=== PATIENT | female | born 1955 | race Caucasian/White ===

== ENCOUNTER 2017-10-03 16:31 | Emergency (ER) | payer MEDICARE, SELFPAY ==
[2017-10-03 16:32] VITALS: BP 149/71; PULSE 90; RESP 20; TEMP 36.8; O2SAT 98; BMI 27.5
--- NOTE | 2017-10-03 16:57 | NURSING ---
NO OLD EKGS
[2017-10-03 17:16] LABS: Bedside Glucose 148 mg/dL (70-110)
--- NOTE | 2017-10-03 17:21 | CT_ITS ---
CT Head or Brain W/O Contrast INDICATION: RT FACIAL DROOP, SLURRED SPEECH COMPARISON: None TECHNIQUE: Noncontrast axial CT examination of the brain. Radiation dose optimization applied. FINDINGS: The ventricular system is normal in size and symmetric. The cortical sulci, sylvian fissures, and basal cisterns are well seen. The mejia-white matter junction is distinct. There is no evidence of acute intracranial hemorrhage, mass effect, midline shift, or abnormal extra-axial collection. The calvarium is intact and the visualized paranasal sinuses and mastoid air cells are clear. CT/Brain/Head without Contrast IMPRESSION: No evidence of acute intracranial abnormality by noncontrast CT. at 2111 Reported and signed by: Darlene Cooper MD Electronically Signed: Darlene Cooper MD at 20:09 EST Tel , Service support ,
--- NOTE | 2017-10-03 17:21 | EKG12_ITS ---
Test Reason : NEURO Blood Pressure : / mmHG Vent. Rate : 077 BPM Atrial Rate : 077 BPM P-R Int : 142 ms QRS Dur : 086 ms QT Int : 382 ms P-R-T Axes : 056 039 078 degrees QTc Int : 432 ms Normal sinus rhythm Normal ECG Confirmed by DENNYS PAGAN, HARIS ([id number]), order editor DARIEN GANN ([id number]) on 10/06/2017 1:09:52 PM Referred By: ALCIRA Confirmed By:HARIS NOYOLA MD
[2017-10-03 17:57] LABS: Absolute Neutrophil Count 4.8 X10^3/uL (2.0-7.7); Basophil# 0.06 X10^3/uL; Basophil% 0.6 % (0-1); Eosinophil# 0.63 X10^3/uL; Eosinophils% 6.7 % (0-5); Hematocrit 32.5 % (37-47); Hemoglobin 10.1 g/dl (12.0-15.0); Lymphocyte % 34.9 % (19-41); Mean Corp Hgb Conc 31.1 g/gl (32-36); Mean Corpuscular Hgb 24.7 pg (27.0-32.0); Mean Corpuscular Volume 79.5 fL (81-99); Mean Platelet Vol. 9.6 fl (6.2-12.0); Monocyte# 0.69 X10^3/uL; Monocyte% 7.3 % (0-10); Neutrophil # 4.77 X10^3/uL (2.7-7.7); Neutrophil % 50.4 % (47-70); Platelet Count 342 K/mm3 (150-450); RBC Distribution Width CV 15.2 % (11.6-14.6); RBC Distribution Width SD 43.8 fl (35.1-43.9); Red Blood Count 4.09 M/mm3 (4.2-5.4); White Blood Count 9.5 K/mm3 (4.4-11.0)
[2017-10-03 17:58] LABS: POSITIVE COUNT NO; POSITIVE DIFFERENTIAL NO; POSITIVE MORPHOLOGY NO
[2017-10-03 18:03] LABS: International Normalized Ratio 1.3
[2017-10-03 18:04] LABS: Partial Thromboplast Time 39.2 Seconds (24.1-36.2)
[2017-10-03 18:05] LABS: Anion Gap 9 (5-15); BUN 8 mg/dL (7-18); BUN/Creat Ratio 11.4 RATIO (10-20); Calcium,Total 8.8 mg/dL (8.5-10.1); Chloride 109 mmol/L (98-107); EST Glomerular Filtration Rate 90 mL/min (>60); Est Glom Filt Rate - Afr Amer 109 mL/min (>60); Glucose 104 mg/dL (74-106); Potassium 3.7 mmol/L (3.5-5.1); Sodium Level 143 mmol/L (136-145)
--- NOTE | 2017-10-03 19:18 | ED.VISSUMM ---
- ER Visit Summary Date of Service: 10/03/17 Chief Complaint: Facial swelling History of Present Illness: The patient is a [address] Godwin turner. She reports for the past 3 days she is having intermittent episodes where it feels like the right side of her face is swelling on the inside of her mouth. This comes and goes. It lasts hours. It is not painful. She denies any relationship to food. Reports that she gets a headache when her face swells. This is 8 out of 10 at worst and she is pain-free currently. She reports that lasts seconds. Patient denies any dental pain. In fact she had her teeth pulled 4-5 years ago. She denies any swelling beneath her tongue. Patient reports that this is similar to a TIA that she had last March that she was admitted to another hospital for. States that she had an MRI and had an echocardiogram that showed that she had a PFO. She was placed on Xarelto and is still on this. Physical Examination: Vitals: Stable. Afebrile. Mouth: Edentulous. No swelling over the parotid gland or duct. Normal Stensen's duct. No swelling beneath the tongue. No focal abscess or tenderness to palpation. Neurological: Cranial nerves II through XII are intact. 5 out of 5 strength throughout. Normal sensation to light touch throughout. Normal ytzuse-yxyf-hlggfh and npzo-ioib-myfb bilaterally. Normal gait. NIH is 0. General: A&O x 3. NAD. Cardiovascular exam: Regular rate and rhythm, no murmur, rub or gallop. Respiratory exam: Clear to auscultation bilaterally. No wheezes or stridor. Abdominal exam: Soft, nontender, nondistended, normal bowel sounds. No peritoneal signs. Extremity: No clubbing, cyanosis, or edema. Test Results: Patient had a CBC that was remarkable for an H&H of 10.1 and 32.5, eosinophils of 7. Chem-7 is remarkable for a chloride of 109. INR is 1.3. PTT is 39.2. EKG is sinus at 77 with no acute changes. CT head shows no acute disease. Emergency Department Course and Treatment: The MRI was obtained from the outside facility. This was obtained on April 08, 2017. It showed no ischemic changes. She had a HARRIET on September 25 of this year that shows a small PFO. She reports that she has an appointment to have this repaired. Treatment Plan: I discussed the patient with Dr. Ohara she states that this is similar the TIAs she has had. In my opinion it does not sound neurologic. Her NIH scale is 0. She is already on maximal care even if this was a TIA. No further treatment or workup is indicated at this time. There is no indication for admission. Will be discharged with instructions to follow-up with her cardiothoracic surgeon for repair of her PFO as scheduled. Follow-up her primary care physician in 1-2 days if not improving. Return to the emergency department for any worsening symptoms. Disposition: To home in improved and stable condition. Impression:. Intermittent right facial swelling. 2. Coagulopathy on Xarelto. 3. Patent foramen ovale. This note was generated with [employer] dictation software. It may contain incorrect words, spelling, and punctuation that were not noted in review of the chart prior to signing ED Disposition - Plan for ED Patient: Disposition: Home or Assisted Living Chief Complaint: Neuro S/Sx Instructions: ED Transient Ischemic Attack Referrals: Jose Ohara MD [STAFF PHYSICIAN] - 1-2 Weeks
[2017-10-03 19:22] VITALS: BP 124/61; PULSE 80; RESP 17; O2SAT 96
--- NOTE | 2017-10-03 19:22 | ED.DCSUM_ITS ---
- ER Visit Summary Date of Service: 10/03/17 Chief Complaint: Facial swelling History of Present Illness: The patient is a [address] Godwin turner. She reports for the past 3 days she is having intermittent episodes where it feels like the right side of her face is swelling on the inside of her mouth. This comes and goes. It lasts hours. It is not painful. She denies any relationship to food. Reports that she gets a headache when her face swells. This is 8 out of 10 at worst and she is pain-free currently. She reports that lasts seconds. Patient denies any dental pain. In fact she had her teeth pulled 4-5 years ago. She denies any swelling beneath her tongue. Patient reports that this is similar to a TIA that she had last March that she was admitted to another hospital for. States that she had an MRI and had an echocardiogram that showed that she had a PFO. She was placed on Xarelto and is still on this. Physical Examination: Vitals: Stable. Afebrile. Mouth: Edentulous. No swelling over the parotid gland or duct. Normal Stensen' s duct. No swelling beneath the tongue. No focal abscess or tenderness to palpation. Neurological: Cranial nerves II through XII are intact. 5 out of 5 strength throughout. Normal sensation to light touch throughout. Normal finger-nose- finger and cmum-ofeb-lohl bilaterally. Normal gait. NIH is 0. General: A&O x 3. NAD. Cardiovascular exam: Regular rate and rhythm, no murmur, rub or gallop. Respiratory exam: Clear to auscultation bilaterally. No wheezes or stridor. Abdominal exam: Soft, nontender, nondistended, normal bowel sounds. No peritoneal signs. Extremity: No clubbing, cyanosis, or edema. Test Results: Patient had a CBC that was remarkable for an H&H of 10.1 and 32.5 , eosinophils of 7. Chem-7 is remarkable for a chloride of 109. INR is 1.3. PTT is 39.2. EKG is sinus at 77 with no acute changes. CT head shows no acute disease. Emergency Department Course and Treatment: The MRI was obtained from the outside facility. This was obtained on April 08, 2017. It showed no ischemic changes. She had a HARRIET on September 25 of this year that shows a small PFO. She reports that she has an appointment to have this repaired. Treatment Plan: I discussed the patient with Dr. Ohara she states that this is similar the TIAs she has had. In my opinion it does not sound neurologic. Her NIH scale is 0. She is already on maximal care even if this was a TIA. No further treatment or workup is indicated at this time. There is no indication for admission. Will be discharged with instructions to follow-up with her cardiothoracic surgeon for repair of her PFO as scheduled. Follow-up her primary care physician in 1-2 days if not improving. Return to the emergency department for any worsening symptoms. Disposition: To home in improved and stable condition. Impression:. Intermittent right facial swelling. 2. Coagulopathy on Xarelto. 3. Patent foramen ovale. This note was generated with [employer] dictation software. It may contain incorrect words, spelling, and punctuation that were not noted in review of the chart prior to signing ED Disposition - Plan for ED Patient: Disposition: Home or Assisted Living Chief Complaint: Neuro S/Sx Instructions: ED Transient Ischemic Attack Referrals: Jose Ohara MD [STAFF PHYSICIAN] - 1-2 Weeks
--- NOTE | 2017-10-03 19:24 | NURSING ---
PT WAS NOT A GOOD HISTORIAN AND DID NOT KNOW WHAT MEDICATIONS SHE IS TAKING. UNABLE TO OBTAIN A MEDICATION LIST.
[2017-10-03 19:25] VITALS: BP 122/63; PULSE 81; RESP 16; O2SAT 99
== END 2017-10-03 19:32 | disposition home or self-care (01) ==
LOC: ED 17:31
PROVIDERS: Emergency Provider Emergency Medicine; Family Provider Internal Medicine; PCP Internal Medicine
DX: R22.0 Localized swelling, mass and lump, head (principal); D68.9 Coagulation defect, unspecified; Z79.01 Long term (current) use of anticoagulants; Q21.1 Atrial septal defect; R51 Headache; K08.109 Complete loss of teeth, unspecified cause, unspecified class; J44.9 Chronic obstructive pulmonary disease, unspecified; Z86.39 Personal history of other endocrine, nutritional and metabolic disease; Z90.49 Acquired absence of other specified parts of digestive tract; F17.200 Nicotine dependence, unspecified, uncomplicated
CPT/HCPCS: 70450; 80048; 82962; 85025; 85610; 85730; 93005; 99284; A4216

== ENCOUNTER → 2017-10-25 15:08 | Outpatient (CLI) | payer MEDICARE, SELFPAY ==
[2017-10-25 15:57] LABS: Absolute Lymphocyte Count 2.94 X10^3/ul (0.83-4.51); Basophil# 0.04 X10^3/uL; Basophil% 0.4 % (0-1); Eosinophil# 0.45 X10^3/uL; Hematocrit 27.9 % (37-47); Hemoglobin 8.5 g/dl (12.0-15.0); Lymphocyte # 2.94 X10^3/ul (4.0); Lymphocyte % 26.1 % (19-41); Mean Corp Hgb Conc 30.5 g/gl (32-36); Mean Corpuscular Hgb 23.6 pg (27.0-32.0); Mean Corpuscular Volume 77.5 fL (81-99); Mean Platelet Vol. 9.5 fl (6.2-12.0); Monocyte# 0.78 X10^3/uL; Monocyte% 6.9 % (0-10); Neutrophil # 7.01 X10^3/uL (2.7-7.7); Neutrophil % 62.3 % (47-70); POSITIVE COUNT NO; POSITIVE DIFFERENTIAL NO; POSITIVE MORPHOLOGY NO; Platelet Count 328 K/mm3 (150-450); RBC Distribution Width CV 15.8 % (11.6-14.6); RBC Distribution Width SD 42.6 fl (35.1-43.9); White Blood Count 11.3 K/mm3 (4.4-11.0)
== END ==
PROVIDERS: Family Provider Internal Medicine; PCP Internal Medicine
DX: E78.00 Pure hypercholesterolemia, unspecified (principal); I65.29 Occlusion and stenosis of unspecified carotid artery
CPT/HCPCS: 85025

== ENCOUNTER 2017-10-29 15:02 | Emergency (ER) | payer MEDICARE, SELFPAY ==
[2017-10-29] VITALS (8 sets, daily range): BP systolic 112–139; BP diastolic 44–108; PULSE 84–100; RESP 17–22; TEMP 36.6; O2SAT 91–100; BMI 27.2
--- NOTE | 2017-10-29 15:24 | EKG12_ITS ---
Test Reason : SOB Blood Pressure : / mmHG Vent. Rate : 089 BPM Atrial Rate : 089 BPM P-R Int : 134 ms QRS Dur : 068 ms QT Int : 362 ms P-R-T Axes : 061 061 074 degrees QTc Int : 440 ms Normal sinus rhythm Normal ECG Confirmed by JOSE PAGAN, CADENCE ([id number]), loan expeditor DARIEN GANN ([id number]) on 11/03/2017 2:16:35 PM Referred By: Mary KNOWLES Confirmed By:CADENCE GARCIA MD
[2017-10-29] MEDS: Ipratropium/Albuterol Sulfate 3 ML AMPUL.NEB INHALATION (15:34)
--- NOTE | 2017-10-29 15:40 | RAD_ITS ---
STUDY: X-RAY CHEST REASON FOR EXAM: Female, 62 years old. Cough. TECHNIQUE: PA and lateral views of the chest. COMPARISON: None. FINDINGS: EKG electrodes are seen. Hyperinflation. 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 Prior mitral valve replacement. Normal mediastinum and kimberly. Normal visualized pulmonary arteries. There is atherosclerotic calcification of the aortic arch with tortuosity. There is demineralization of the osseous structures. Normal visualized ribs, clavicles, and shoulders. There is no demonstrated abnormality of the visualized soft tissue structures of the upper abdomen. RAD/Chest PA and Lateral IMPRESSION: Right middle lobe infiltrate with volume loss. Electronically Signed: Solis Carroll MD at 16:00 EST Tel [phone], Service support ,
[2017-10-29 16:09] LABS: Anion Gap 9 (5-15); BUN 13 mg/dL (7-18); BUN/Creat Ratio 17.8 RATIO (10-20); Calcium,Total 8.9 mg/dL (8.5-10.1); Chloride 108 mmol/L (98-107); Creatinine, Serum 0.73 mg/dL (0.55-1.02); EST Glomerular Filtration Rate 86 mL/min (>60); Est Glom Filt Rate - Afr Amer 104 mL/min (>60); Estimated Creatinine Clearance 64.82 ml/min; Glucose 150 mg/dL (74-106); Potassium 4.7 mmol/L (3.5-5.1); Sodium Level 141 mmol/L (136-145)
[2017-10-29 16:19] LABS: Absolute Lymphocyte Count 2.21 X10^3/ul (0.83-4.51); Absolute Neutrophil Count 6.2 X10^3/uL (2.0-7.7); Basophil# 0.05 X10^3/uL; Basophil% 0.5 % (0-1); Eosinophil# 0.54 X10^3/uL; Eosinophils% 5.6 % (0-5); Hematocrit 29.6 % (37-47); Hemoglobin 8.9 g/dl (12.0-15.0); Lymphocyte # 2.21 X10^3/ul (4.0); Lymphocyte % 22.9 % (19-41); Mean Corp Hgb Conc 30.1 g/gl (32-36); Mean Corpuscular Hgb 22.9 pg (27.0-32.0); Mean Corpuscular Volume 76.1 fL (81-99); Mean Platelet Vol. 9.8 fl (6.2-12.0); Monocyte# 0.66 X10^3/uL; Monocyte% 6.8 % (0-10); Neutrophil # 6.16 X10^3/uL (2.7-7.7); Platelet Count 368 K/mm3 (150-450); RBC Distribution Width CV 15.9 % (11.6-14.6); Red Blood Count 3.89 M/mm3 (4.2-5.4); White Blood Count 9.6 K/mm3 (4.4-11.0)
[2017-10-29 16:24] LABS: Differential Indicated SCAN CRITERIA MET; POSITIVE COUNT YES; POSITIVE DIFFERENTIAL NO; POSITIVE MORPHOLOGY NO
[2017-10-29 16:58] LABS: Differential Comment SCANNED; Platelet Estimate ADEQUATE (ADEQ)
[2017-10-29 17:28] LABS: BNP,B-Type NATRIURETIC PEPTIDE 24.9 pg/mL (0-100)
--- NOTE | 2017-10-29 17:48 | ED.RN ---
PAGED DR KNOWLES FOR DR NELSON
[2017-10-29 18:42] LABS: Lactic Acid 2.8 mmol/L (0.4-2.0)
--- NOTE | 2017-10-29 18:42 | ED.RN ---
SIDNEY FROM LAB CALLED WITH CRITICAL LAB LACTIC 2.8 AND PRIMARY NURSE, RAUDEL SILVERMAN, & DR. NELSON AWARE OF SAME.
--- NOTE | 2017-10-29 18:49 | CT_ITS ---
STUDY: CTA CHEST REASON FOR EXAM: Female, 62 years old. Shortness of breath. Dyspnea. RADIATION DOSAGE (If Supplied By Facility): CTDIvol = ( 10.90 ) mGy, DLP = ( 452.89 ) mGycm TECHNIQUE: The examination was performed with the intravenous administration of 75ML ml of Isovue 370 contrast material. Post-processing of the angiographic images was performed, with multiplanar reformation and 3D reconstruction. Individualized dose optimization techniques were used for this CT. COMPARISON: Chest x-ray. FINDINGS: There is limited enhancement of the right and left pulmonary arteries. Diminished enhancement involving central and lower lung pulmonary arteries on the left suspicious for embolism , series 2 images 149/265 through 154/265 and images 133/265 and 134/265. There is atherosclerotic calcification of the aortic arch with tortuosity. There is no demonstrated aortic dissection. Atrial septal closure device and the heart. There are calcifications of the coronary arteries. Normal mediastinum. Normal hilar regions. Normal visualized trachea . The lungs are well expanded. There is emphysema of the lungs and fibrotic densities. There is right middle lobe airspace consolidation . There are bilateral lower lung endobronchial opacities with possible mucous plugging There is pleural fibrotic thickening of the pulmonary lung apices. Normal chest wall structures. Normal osseous structures. Normal visualized upper abdomen. CT/CTA Chest W/WO Contrast IMPRESSION: Abnormal CTA chest examination, with abnormal enhancement of the pulmonary arteries on the left suggesting embolism versus artifact. Right middle lobe infiltrate. Emphysema and fibrotic densities. N.B. : The above information has been verbally conveyed by Felice Arteaga MD to Dr. Manan Cardoso, Referring Physician, on 10/29/2017 19:51:52 (ET). Electronically Signed: Felice Arteaga MD at 19:52 EST , Service support , N.B. : The above information has been verbally conveyed by Felice Arteaga MD to Dr. Manan Cardoso, Referring Physician, on 10/29/2017 19:51:52 (ET).
[2017-10-29] MEDS: Enoxaparin 100 MG/ML Syringe 70 MG SC (20:12)
--- NOTE | 2017-10-29 20:28 | ED.VISSUMM ---
- ER Visit Summary Date of Service: 10/29/17 Chief Complaint: Shortness of breath History of Present Illness: The patient is a 62 F who presents with shortness of breath. She has a history of recurrent TIAs. Her workup was unremarkable except for patent barrera ovale. Therefore is felt closure was indicated. 1 week ago she had a procedure for closure of her PFO. Since that time she can planes of shortness of breath and nonproductive cough. She had scant hemoptysis today. She saw her primary care physician yesterday who stated she was wheezing but she had no further treatment or workup. She denies any chest pain fevers vomiting. Physical Examination: Heart rate 100 vitals otherwise unremarkable Moist mucous membranes Heart regular rate and rhythm Patient has scattered expiratory wheezes and rhonchi Abdomen soft Alert Extremities nontender Test Results: EKG shows normal sinus rhythm at rate of 89 unchanged from prior. Two-view chest x-ray shows right middle lobe infiltration CTA of the chest shows right middle lobe infiltrate and left-sided probable pulmonary emboli. Lab work unremarkable. Emergency Department Course and Treatment: Patient was treated with IV Zosyn and vancomycin. I spoke to the hospitalist at [facility]. He also vocalize concern for possible PE given the lack of leukocytosis or fever or sputum or typical infectious symptoms. Therefore CTA of the chest was obtained which does also show possible left-sided PEs. Patient was treated with subcutaneous Lovenox. Patient transferred to [place]. I did attempt to contact the patient's glue bone crusher but did not receive a call back. Treatment Plan: [] Disposition: Transfer Impression: Health care associated pneumonia Pulmonary embolism This note was generated with [employer] dictation software. It may contain incorrect words, spelling, and punctuation that were not noted in review of the chart prior to signing ED Disposition - Plan for ED Patient: Chief Complaint: Shortness of Breath Referrals: Madhu Bruno [Primary Care Provider] -
--- NOTE | 2017-10-29 20:31 | ED.DCSUM_ITS ---
- ER Visit Summary Date of Service: 10/29/17 Chief Complaint: Shortness of breath History of Present Illness: The patient is a 62 F who presents with shortness of breath. She has a history of recurrent TIAs. Her workup was unremarkable except for patent barrera ovale. Therefore is felt closure was indicated. 1 week ago she had a procedure for closure of her PFO. Since that time she can planes of shortness of breath and nonproductive cough. She had scant hemoptysis today. She saw her primary care physician yesterday who stated she was wheezing but she had no further treatment or workup. She denies any chest pain fevers vomiting. Physical Examination: Heart rate 100 vitals otherwise unremarkable Moist mucous membranes Heart regular rate and rhythm Patient has scattered expiratory wheezes and rhonchi Abdomen soft Alert Extremities nontender Test Results: EKG shows normal sinus rhythm at rate of 89 unchanged from prior. Two-view chest x-ray shows right middle lobe infiltration CTA of the chest shows right middle lobe infiltrate and left-sided probable pulmonary emboli. Lab work unremarkable. Emergency Department Course and Treatment: Patient was treated with IV Zosyn and vancomycin. I spoke to the hospitalist at [facility]. He also vocalize concern for possible PE given the lack of leukocytosis or fever or sputum or typical infectious symptoms. Therefore CTA of the chest was obtained which does also show possible left-sided PEs. Patient was treated with subcutaneous Lovenox. Patient transferred to [place]. 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 Treatment Plan: [] Disposition: Transfer Impression: Health care associated pneumonia Pulmonary embolism This note was generated with [employer] dictation software. It may contain incorrect words, spelling, and punctuation that were not noted in review of the chart prior to signing ED Disposition - Plan for ED Patient: Chief Complaint: Shortness of Breath Referrals: Madhu Bruno [Primary Care Provider] -
[2017-10-29 21:59] LABS: Reflex Lactate? Y
== END 2017-10-29 21:04 | disposition short-term general hospital (02) ==
PROVIDERS: Emergency Provider Emergency Medicine; Family Provider Internal Medicine; PCP Internal Medicine
DX: J18.9 Pneumonia, unspecified organism (principal); Y95 Nosocomial condition; I26.99 Other pulmonary embolism without acute cor pulmonale; J44.9 Chronic obstructive pulmonary disease, unspecified; K21.9 Gastro-esophageal reflux disease without esophagitis; Z72.0 Tobacco use; Z90.49 Acquired absence of other specified parts of digestive tract; Z79.82 Long term (current) use of aspirin; Z79.899 Other long term (current) drug therapy
CPT/HCPCS: 71046; 71275; 80048; 83605; 83880; 84484; 85025; 87040; 93005; 94640; 96365; 96366; 96367; 96372; 99285; J7040; Q9967; A4216

== ENCOUNTER 2018-03-06 21:50 | Emergency (ER) | payer OTHER, MEDICARE, SELFPAY ==
[2018-03-06 21:51] VITALS: BP 128/60; PULSE 111; RESP 16; TEMP 38.5; O2SAT 98; BMI 26.5
--- NOTE | 2018-03-06 22:03 | ED.RN ---
CALLED FOR EKG PER RN REQUEST, PULLED OLD EKG'S FOR
--- NOTE | 2018-03-06 22:21 | EKG12_ITS ---
Test Reason : CP Blood Pressure : / mmHG Vent. Rate : 104 BPM Atrial Rate : 104 BPM P-R Int : 122 ms QRS Dur : 074 ms QT Int : 322 ms P-R-T Axes : 059 056 062 degrees QTc Int : 423 ms Sinus tachycardia Otherwise normal ECG Confirmed by JOSE PAGAN, CADENCE ([id number]), editor book DARIEN GANN ([id number]) on 03/10/2018 1:50:09 PM Referred By: JAYMIE Confirmed By:CADENCE GARCIA MD
--- NOTE | 2018-03-06 22:21 | RAD_ITS ---
STUDY: X-RAY CHEST REASON FOR EXAM: Female, 62 years old. Cough. TECHNIQUE: PA and lateral views of the chest. COMPARISON: December 29, 2017. FINDINGS: There is a right upper lobe infiltrate not present on the prior study. The lungs are otherwise clear. There is no demonstrated pleural abnormality. Normal size heart. Normal mediastinum and kimberly. Normal visualized pulmonary arteries. Normal visualized aortic arch and descending thoracic aorta. There is demineralization of the osseous structures. Normal visualized ribs, clavicles, and shoulders. There is no demonstrated abnormality of the visualized soft tissue structures of the upper abdomen. RAD/Chest PA and Lateral IMPRESSION: Right upper lobe infiltrate. Electronically Signed: Sandip Zavala DO at 23:16 EDT Tel [phone], Service support ,
[2018-03-06] MEDS: Ipratropium/Albuterol Sulfate 3 ML AMPUL.NEB INHALATION (22:30)
[2018-03-06 22:32] VITALS: PULSE 104; RESP 22
[2018-03-06 22:36] LABS: Absolute Lymphocyte Count 1.84 X10^3/ul (0.83-4.51); Absolute Neutrophil Count 16.4 X10^3/uL (2.0-7.7); Basophil# 0.01 X10^3/uL; Differential Indicated SCAN CRITERIA MET; Eosinophil# 0.02 X10^3/uL; Eosinophils% 0.1 % (0-5); Hematocrit 34.7 % (37-47); Hemoglobin 11.7 g/dl (12.0-15.0); Lymphocyte # 1.84 X10^3/ul (4.0); Mean Corp Hgb Conc 33.7 g/gl (32-36); Mean Corpuscular Hgb 27.9 pg (27.0-32.0); Mean Corpuscular Volume 82.6 fL (81-99); Mean Platelet Vol. 10.4 fl (6.2-12.0); Monocyte# 2.19 X10^3/uL; Monocyte% 10.7 % (0-10); Neutrophil # 16.44 X10^3/uL (2.7-7.7); POSITIVE COUNT NO; POSITIVE DIFFERENTIAL YES; POSITIVE MORPHOLOGY NO; Platelet Count 225 K/mm3 (150-450); RBC Distribution Width CV 15.5 % (11.6-14.6); RBC Distribution Width SD 46.1 fl (35.1-43.9); White Blood Count 20.5 K/mm3 (4.4-11.0)
[2018-03-06] MEDS: 0.9% Normal Saline 1,000 ML 999 ML IV (22:39)
[2018-03-06] MEDS: MethylPREDNISolone 125 MG/2 ML Vial IV (22:39)
[2018-03-06] MEDS: Acetaminophen 500 MG Tablet 1000 MG PO (22:42)
[2018-03-06 22:43] VITALS: BP 102/54; PULSE 100; RESP 21; O2SAT 97
[2018-03-06 23:00] LABS: Anion Gap 11 (5-15); BUN 14 mg/dL (7-18); BUN/Creat Ratio 20.9 RATIO (10-20); Calcium,Total 8.7 mg/dL (8.5-10.1); Chloride 106 mmol/L (98-107); Creatinine, Serum 0.67 mg/dL (0.55-1.02); EST Glomerular Filtration Rate 95 mL/min (>60); Est Glom Filt Rate - Afr Amer 115 mL/min (>60); Estimated Creatinine Clearance 70.62 ml/min; Glucose 108 mg/dL (74-106); Potassium 3.7 mmol/L (3.5-5.1); Sodium Level 139 mmol/L (136-145)
[2018-03-06 23:03] LABS: Differential Comment SCANNED
[2018-03-06 23:12] LABS: Lactic Acid 1.7 mmol/L (0.4-2.0)
--- NOTE | 2018-03-06 23:24 | ED.VISSUMM ---
- ER Visit Summary Date of Service: 03/06/18 Chief Complaint: Cough History of Present Illness: The patient is a [address] Perez. She reports she has cough began 10 days ago. Is productive yellow sputum, but only after she uses her nebulizer. She does report there is been specks of blood. She had subjective fever, chills, sweats. She has sore throat is 5 out of 10 severity. Reports that she has shortness of breath that is severe. Is worsened with walking. She does get some relief with her albuterol. She reports that she has had constant right-sided chest pain for the past week that is increased with coughing. She reports that she has a headache that increases when she coughs. It is 8 out of 10 severity. She has had similar headaches previously. Physical Examination: Vitals: 101.3, 120/60, 104, 22, 98% on room air which is not hypoxic. General: Well-nourished and well-developed. Head: Normocephalic atraumatic. Neck: Supple, no lymphadenopathy. No JVD. Nontender. Cardiovascular: Regular rate and rhythm. No murmurs. Respiratory: No respiratory distress. Mild wheezing bilaterally with decreased air movement. Abdominal: Soft, nontender, nondistended, normal bowel sounds. No guarding, rebound, or peritoneal signs. Back: Nontender. Extremities: Nontender, no edema. Skin: Normal color, no rash. Neurologic: Alert and oriented ?3. Cranial nerves II through XII are intact. Normal strength and sensation. Psych: Normal affect. Test Results: Chest x-ray shows right upper lobe infiltrate. EKG is sinus tachycardia [address] changes. Unchanged from October of this year. Troponins negative. Lactic acid is normal. Chem-7 more for glucose 108. CBC is more for white count 20.5, H&H 11.7 34.7, segmented neutrophils 80, lymphs lites of 9, monocytes of 11. Emergency Department Course and Treatment: Patient is treated albuterol and Atrovent aerosols. She is given Solu-Medrol IV. She was given Tylenol p.o. Treatment Plan: Patient's pneumonia severity index is 50, making her class II. Her curb 65 score 0. She feels well and would like to try outpatient treatment. She is given dose of doxycycline and prednisone p.o. here. She already has a nebulizer at home. She will be discharged on doxycycline and prednisone. Instructed follow-up her primary care physician in 3-5 days for another exam. Return to the emergency department for any worsening symptoms. Disposition: To home in improved and stable condition. Impression: 1. Pneumonia, community-acquired. This note was generated with [employer] dictation software. It may contain incorrect words, spelling, and punctuation that were not noted in review of the chart prior to signing ED Disposition - Plan for ED Patient: Disposition: Home or Assisted Living Chief Complaint: Cough Instructions: ED Pneumonia Adult Prescriptions: Oxycodone HCl/Acetaminophen [Percocet 5/325] 1 tablet PO Q6H PRN PRN 3 Days #12 tablet PRN Reason: Pain Prednisone 10 mg PO DAILY #63 tablet Doxycycline Monohydrate 100 mg PO BID #20 capsule Referrals: Jt Rajan MD [Primary Care Provider] - 3-5 Days
[2018-03-06 23:26] VITALS: BP 108/63; PULSE 96; RESP 21; TEMP 37.2; O2SAT 98
[2018-03-06] MEDS: predniSONE 20 MG Tablet 40 MG PO (23:31)
[2018-03-06] MEDS: Doxycycline 100 MG CAPSULE PO (23:31)
[2018-03-06] MEDS: oxyCODONE 5 MG Tablet PO (23:31)
[2018-03-10 09:40] LABS: Pathologist Review Reviewed
== END 2018-03-06 23:43 | disposition home or self-care (01) ==
LOC: ED 22:26
PROVIDERS: Emergency Provider Emergency Medicine
DX: J44.0 Chronic obstructive pulmonary disease with (acute) lower respiratory infection (principal); J18.9 Pneumonia, unspecified organism; R00.0 Tachycardia, unspecified; R51 Headache; G47.33 Obstructive sleep apnea (adult) (pediatric); Z72.0 Tobacco use; Z79.82 Long term (current) use of aspirin; Z79.899 Other long term (current) drug therapy
CPT/HCPCS: 71046; 80048; 83605; 84484; 85025; 87040; 93005; 94640; 96361; 96374; 99285; J7030; A4216